=== PATIENT | male | born 2000 | race African-American/Black ===

== ENCOUNTER → 2025-07-26 | Outpatient (CLI) | payer OTHER ==
--- NOTE | 2025-07-26 14:26 | HMCIMG ---
EXAM: US Scrotum. CLINICAL HISTORY: TESTICULAR PAIN TECHNIQUE: Real-time ultrasound of the scrotum with color Doppler and image documentation. COMPARISON: None provided. FINDINGS: RIGHT TESTICLE: Normal in size and echogenicity, no abnormal mass. Normal Doppler flow. LEFT TESTICLE: Normal in size and echogenicity, no abnormal mass. Normal Doppler flow. EPIDIDYMIDES: The epididymes are normal in size and demonstrate Doppler flow within normal limits. SCROTUM: No hydrocele, varicocele, or extratesticular mass seen. Unremarkable. IMPRESSION: No acute abnormality evident on sonographic examination of the scrotum. /[place]
== END | disposition home or self-care (01) ==
LOC: EEVIPCON 11:30 → RAH 12:53
PROVIDERS: ATTEND Physical Medicine & Rehabilitation
DX: N50.819 Testicular pain, unspecified (principal)
CPT/HCPCS: 76870